=== PATIENT | male | born 1980 | race Caucasian/White ===

== ENCOUNTER → 2018-01-27 | Outpatient (REF) | payer MEDICAID ==
[2018-01-27 12:26] LABS: ALBUMIN 3.9 GM/DL (3.2-5.2); ALKALINE PHOSPHATASE 76 U/L (45-117); ALT/SGPT 66 U/L (12-78); ANION GAP 7 MEQ/L (8-16); AST/SGOT 54 U/L (7-37); BILIRUBIN,TOTAL 0.4 MG/DL (0.2-1.0); BLOOD UREA NITROGEN 16 MG/DL (7-18); CARBON DIOXIDE LEVEL 29 MEQ/L (21-32); CHLORIDE LEVEL 102 MEQ/L (98-107); CHOLESTEROL LEVEL 146 MG/DL (<200); CHOLESTEROL RISK RATIO 5.615 (<5); CREATININE FOR GFR 1.18 MG/DL (0.70-1.30); GLOMERULAR FILTRATION RATE > 60.0 (>60); GLUCOSE, FASTING 73 MG/DL (70-100); HDL CHOLESTEROL 26 MG/DL (>40); LDL CHOLESTEROL 104 MG/DL (<100); NON-HDL-C 120 MG/DL; POTASSIUM SERUM 5.3 MEQ/L (3.5-5.1); SODIUM LEVEL 138 MEQ/L (136-145); TOTAL PROTEIN 7.8 GM/DL (6.4-8.2); TRIGLYCERIDES LEVEL 79 MG/DL (<150)
[2018-01-27 12:50] LABS: HEPATITIS B CORE ANTIBODY IGM NEGATIVE (NEGATIVE); HEPATITIS C VIRUS ABY INDEX < 0.0 INDEX (<0.8)
[2018-01-27 12:52] LABS: HIV 1&2 SCREEN CENTAUR NEGATIVE (NEGATIVE)
[2018-01-27 12:53] LABS: HEPATITIS A ANTIBODY IGM NEGATIVE (NEGATIVE)
[2018-01-27 13:25] LABS: HEPATITIS B SURFACE ANTIGEN NEGATIVE (NEGATIVE)
[2018-01-27 14:11] LABS: CHLAMYDIA DNA AMPLIFICATION NEGATIVE (NEGATIVE); GC DNA AMPLIFICATION NEGATIVE (NEGATIVE)
== END ==
LOC: M SFHCCLAY 08:35
DX: Z00.00 Encounter for general adult medical examination without abnormal findings (principal); Z72.51 High risk heterosexual behavior; Z11.59 Encounter for screening for other viral diseases; Z87.898 Personal history of other specified conditions; Z11.4 Encounter for screening for human immunodeficiency virus [HIV]; Z13.220 Encounter for screening for lipoid disorders

== ENCOUNTER → 2018-01-28 | Outpatient (REF) | payer MEDICAID | LOC: M SFHCCLAY 07:51 | DX: E87.5 Hyperkalemia (principal); R74.0 Nonspecific elevation of levels of transaminase and lactic acid dehydrogenase [LDH]; Z53.8 Procedure and treatment not carried out for other reasons ==

== ENCOUNTER → 2018-02-02 | Outpatient (REF) | payer MEDICAID ==
[2018-02-02 18:53] LABS: ALBUMIN 3.6 GM/DL (3.2-5.2); ALKALINE PHOSPHATASE 79 U/L (45-117); ALT/SGPT 63 U/L (12-78); ANION GAP 4 MEQ/L (8-16); AST/SGOT 69 U/L (7-37); BILIRUBIN,TOTAL 0.3 MG/DL (0.2-1.0); BLOOD UREA NITROGEN 14 MG/DL (7-18); CALCIUM LEVEL 9.2 MG/DL (8.5-10.1); CARBON DIOXIDE LEVEL 31 MEQ/L (21-32); CHLORIDE LEVEL 102 MEQ/L (98-107); CREATININE FOR GFR 1.38 MG/DL (0.70-1.30); GLOMERULAR FILTRATION RATE > 60.0 (>60); GLUCOSE, FASTING 68 MG/DL (70-100); POTASSIUM SERUM 5.4 MEQ/L (3.5-5.1); SODIUM LEVEL 137 MEQ/L (136-145); TOTAL PROTEIN 7.2 GM/DL (6.4-8.2)
== END ==
LOC: M SFHCCLAY 06:59
DX: E87.5 Hyperkalemia (principal); R74.0 Nonspecific elevation of levels of transaminase and lactic acid dehydrogenase [LDH]
CPT/HCPCS: 80053

== ENCOUNTER → 2018-02-23 | Outpatient (REF) | payer MEDICAID | LOC: M SFHCCLAY 06:56 | DX: E87.5 Hyperkalemia (principal); R74.0 Nonspecific elevation of levels of transaminase and lactic acid dehydrogenase [LDH] ==

== ENCOUNTER → 2018-03-18 | Outpatient (CLI) | payer MEDICAID | LOC: M OUTALCOH 12:57 | DX: Z13.9 Encounter for screening, unspecified (principal); Z03.89 Encounter for observation for other suspected diseases and conditions ruled out ==

== ENCOUNTER → 2018-03-19 | Outpatient (CLI) | payer MEDICAID ==
[2018-03-19 14:26] LABS: ALBUMIN 3.6 GM/DL (3.2-5.2); ALKALINE PHOSPHATASE 84 U/L (45-117); ALT/SGPT 64 U/L (12-78); ANION GAP 7 MEQ/L (8-16); AST/SGOT 74 U/L (7-37); BILIRUBIN,TOTAL 0.3 MG/DL (0.2-1.0); BLOOD UREA NITROGEN 19 MG/DL (7-18); CALCIUM LEVEL 9.6 MG/DL (8.5-10.1); CARBON DIOXIDE LEVEL 29 MEQ/L (21-32); CHLORIDE LEVEL 101 MEQ/L (98-107); CORTISOL BASELINE 13.2 UG/DL (4.3-22.4); CREATININE FOR GFR 1.16 MG/DL (0.70-1.30); GLOMERULAR FILTRATION RATE > 60.0 (>60); GLUCOSE, FASTING 30 MG/DL (70-100); IRON (FE) 72 UG/DL (65-175); PERCENT SATURATION 18.6 % (19.7-50.0); SODIUM LEVEL 137 MEQ/L (136-145); TOTAL IRON BINDING CAPACITY 387 UG/DL (250-450); TOTAL PROTEIN 7.2 GM/DL (6.4-8.2)
[2018-03-25 14:24] LABS: RENIN LEVEL 0.476 ng/mL/hr (0.167-5.380)
== END ==
LOC: M LAB 12:57
DX: E87.5 Hyperkalemia (principal); R74.0 Nonspecific elevation of levels of transaminase and lactic acid dehydrogenase [LDH]
CPT/HCPCS: 83550

== ENCOUNTER → 2018-05-13 | Outpatient (CLI) | payer OTHER ==
[2018-05-13 13:49] LABS: INR 0.92; PROTHROMBIN TIME 12.4 SECONDS (12.1-14.4)
[2018-05-13 14:10] LABS: ALBUMIN 3.7 GM/DL (3.2-5.2); ALT/SGPT 68 U/L (12-78); BILIRUBIN,DIRECT 0.1 MG/DL (0.0-0.2); BILIRUBIN,TOTAL 0.3 MG/DL (0.2-1.0); IRON (FE) 38 UG/DL (65-175); PERCENT SATURATION 9.4 % (19.7-50.0); TOTAL IRON BINDING CAPACITY 406 UG/DL (250-450); TOTAL PROTEIN 7.5 GM/DL (6.4-8.2)
[2018-05-14 12:22] LABS: HEPATITIS B SURFACE ANTIGEN NEGATIVE (NEGATIVE)
[2018-05-14 12:49] LABS: HEPATITIS C VIRUS ABY INDEX 0.1 INDEX (<0.8)
[2018-05-14 12:50] LABS: HEPATITIS B CORE ANTIBODY IGM NEGATIVE (NEGATIVE)
[2018-05-14 12:52] LABS: HEPATITIS A ANTIBODY IGM NEGATIVE (NEGATIVE)
[2018-05-16 00:07] LABS: LIVER-KIDNEY MICROSOMAL ABY <20.1 Units (0.0-20.0)
[2018-05-19 00:08] LABS: ANCA-ATYPICAL <1:20 titer (Neg:<1:20); ANTI-MITOCHONDRIAL ANTIBODY <20.0 Units (0.0-20.0); ANTINUCLEAR ANTIBODIES DIRECT Negative (Negative); CERULOPLASMIN 30.4 mg/dL (16.0-31.0); CYTOPLASMIC NEUTROP AB ANCA-C <1:20 titer (Neg:<1:20); PERINUCLEAR AB ANCA-P <1:20 titer (Neg:<1:20)
== END ==
LOC: M LAB 13:14
PROVIDERS: ATTEND Internal Medicine Gastroenterology
DX: R74.8 Abnormal levels of other serum enzymes (principal)

== ENCOUNTER → 2018-05-19 | Outpatient (CLI) | payer OTHER ==
--- NOTE | 2018-05-19 19:54 | REP ---
Clinical: Abnormal liver function tests . Technique: Aponte scale ultrasound using curved array transducer. Findings: The liver and pancreas are normal in contour, size, and echogenicity without focal hepatic or pancreatic lesions identified. The gallbladder is normal without gallstones, wall thickening or pericholecystic fluid. No biliary ductal dilatation is appreciated, and the common bile duct measures 2.8 mm diameter. The right kidney is normal in reniform shape without hydronephrosis and measures 13.0 x 5.3 x 4.6 cm. No ascites. Visualized portions of the abdominal aorta normal. Impression: Normal right upper quadrant and liver abdominal ultrasound. Electronically Signed by Dominguez Lee MD 05/19/2018 07:46 P
== END ==
LOC: M RAD 08:24
PROVIDERS: ATTEND Internal Medicine Gastroenterology
DX: R74.8 Abnormal levels of other serum enzymes (principal)

== ENCOUNTER → 2018-06-22 | Outpatient (REF) | payer MEDICAID, OTHER ==
[2018-06-25 14:26] LABS: HEPATITIS C QUANTITATION HCV Not Detected IU/mL (.)
== END ==
LOC: M SFHCCLAY 12:27
PROVIDERS: ATTEND Family Medicine
DX: E87.5 Hyperkalemia (principal)

== ENCOUNTER → 2018-07-07 | Outpatient (CLI) | payer MEDICAID, OTHER | LOC: M LAB 15:03 | PROVIDERS: ATTEND Internal Medicine Gastroenterology | DX: D50.9 Iron deficiency anemia, unspecified (principal) ==

== ENCOUNTER → 2019-01-14 | Outpatient (CLI) | payer MEDICAID | LOC: M OUTALCOH 07:45 | PROVIDERS: ATTEND Psychiatry & Neurology Psychiatry | DX: Z03.89 Encounter for observation for other suspected diseases and conditions ruled out (principal) ==

== ENCOUNTER 2019-02-07 09:30 | Outpatient (RCR) | payer MEDICAID | END 2019-02-10 | LOC: M OUTALCOH 09:30 | PROVIDERS: ATTEND Psychiatry & Neurology Psychiatry | DX: F14.10 Cocaine abuse, uncomplicated (principal); F10.10 Alcohol abuse, uncomplicated ==

== ENCOUNTER → 2019-02-10 | Outpatient (RCR) | payer MEDICAID | LOC: M OUTALCOH 11:08 | PROVIDERS: ATTEND Psychiatry & Neurology Psychiatry | DX: F14.10 Cocaine abuse, uncomplicated (principal); F10.10 Alcohol abuse, uncomplicated ==

== ENCOUNTER 2019-03-07 16:00 | Outpatient (RCR) | payer OTHER | END 2019-03-12 | LOC: M OUTALCOH 16:00 | PROVIDERS: ATTEND Psychiatry & Neurology Psychiatry | DX: F14.10 Cocaine abuse, uncomplicated (principal); F10.10 Alcohol abuse, uncomplicated ==

== ENCOUNTER 2019-03-15 18:53 | Emergency (ER) | payer OTHER ==
[~2019-03-15] VITALS: Ht 180.3 cm; Wt 90.9 kg
[2019-03-15 18:53] VITALS: BP 135/78
[2019-03-15] MEDS ORDERED: HYDR-643 (18:58)
[2019-03-15] MEDS ORDERED: BUPR300T34 (18:58)
[2019-03-15] MEDS ORDERED: PANT40TA3 (18:58)
== END 2019-03-15 21:33 | disposition left against medical advice (07) ==
LOC: M ED 18:53
DX: Z53.21 Procedure and treatment not carried out due to patient leaving prior to being seen by health care provider (principal)

== ENCOUNTER → 2019-04-01 | Outpatient (CLI) | payer MEDICAID ==
[~2019-04-01] MED LIST: BUPR300T34; HYDR-643; PANT40TA3
== END ==
LOC: M PLALAB 12:20
PROVIDERS: ATTEND Psychiatry & Neurology Psychiatry
DX: Z03.89 Encounter for observation for other suspected diseases and conditions ruled out (principal)

== ENCOUNTER 2019-04-11 08:45 | Outpatient (RCR) | payer OTHER | END 2019-04-12 | LOC: M OUTALCOH 08:45 | PROVIDERS: ATTEND Psychiatry & Neurology Psychiatry | DX: F14.10 Cocaine abuse, uncomplicated (principal); F10.10 Alcohol abuse, uncomplicated ==

== ENCOUNTER → 2019-04-20 | Outpatient (CLI) | payer OTHER ==
[2019-04-20 18:20] LABS: AMPHETAMINES URINE REFLEX NEGATIVE (NEGATIVE); BARBITURATES URINE REFLEX NEGATIVE (NEGATIVE); BENZODIAZEPINES URINE REFLEX NEGATIVE (NEGATIVE); CANNABINOIDS URINE REFLEX NEGATIVE (NEGATIVE); COCAINE METABOLITE URINE REFLE NEGATIVE (NEGATIVE); METHADONE URINE REFLEX NEGATIVE (NEGATIVE); OPIATES URINE REFLEX NEGATIVE (NEGATIVE); PHENCYCLIDINE URINE REFLEX NEGATIVE (NEGATIVE)
== END ==
LOC: M PLALAB 12:22
PROVIDERS: ATTEND Psychiatry & Neurology Psychiatry
DX: F14.10 Cocaine abuse, uncomplicated (principal); F10.10 Alcohol abuse, uncomplicated

== ENCOUNTER 2019-05-02 08:45 | Outpatient (RCR) | payer OTHER ==
[~2019-05-02 08:45] MED LIST changes: -BUPR300T34; +BUPR300T92
== END 2019-05-13 ==
LOC: M OUTALCOH 08:45
PROVIDERS: ATTEND Psychiatry & Neurology Psychiatry
DX: F14.10 Cocaine abuse, uncomplicated (principal); F10.10 Alcohol abuse, uncomplicated

== ENCOUNTER → 2019-05-12 | Outpatient (REF) | payer MEDICAID, OTHER ==
[2019-05-12 16:07] LABS: BASO % 0.5 % (0.0-1.0); EOS # 0.2 10^3/uL (0.0-0.5); EOS % 2.5 % (0.0-3.0); HEMATOCRIT 47.3 % (42.0-52.0); HEMOGLOBIN 14.8 g/dl (13.5-17.5); LYMPH # 1.7 10^3/uL (1.5-5.0); LYMPH % 21.3 % (24.0-44.0); MEAN CORPUSCULAR HEMOGLOBIN 29.3 pg (27.0-33.0); MEAN CORPUSCULAR HGB CONC 31.3 g/dl (32.0-36.5); MEAN CORPUSCULAR VOLUME 93.7 fl (80.0-96.0); MONO # 0.6 10^3/uL (0.0-0.8); NEUTROPHILS # 5.5 10^3/uL (1.5-8.5); NEUTROPHILS % 68.3 % (36.0-66.0); PLATELET COUNT, AUTOMATED 300 10^3/uL (150-450); RED BLOOD COUNT 5.05 10^6/uL (4.30-6.10); WHITE BLOOD COUNT 8.1 10^3/uL (4.0-10.0)
[2019-05-12 16:58] LABS: ALBUMIN 4.1 GM/DL (3.2-5.2); ALT/SGPT 126 U/L (12-78); BILIRUBIN,TOTAL 0.8 MG/DL (0.2-1.0); BLOOD UREA NITROGEN 16 MG/DL (7-18); CALCIUM LEVEL 9.5 MG/DL (8.5-10.1); CARBON DIOXIDE LEVEL 31 MEQ/L (21-32); CHLORIDE LEVEL 104 MEQ/L (98-107); CREATININE FOR GFR 1.08 MG/DL (0.70-1.30); GLOMERULAR FILTRATION RATE > 60.0 (>60); GLUCOSE, FASTING 81 MG/DL (70-100); SODIUM LEVEL 139 MEQ/L (136-145); TOTAL PROTEIN 7.7 GM/DL (6.4-8.2)
[2019-05-13 09:55] LABS: HEPATITIS B SURFACE ANTIBODY POSITIVE (POSITIVE)
[2019-05-13 10:00] LABS: HEPATITIS B SURFACE ANTIGEN NEGATIVE (NEGATIVE)
[2019-05-13 10:27] LABS: HEPATITIS C VIRUS ABY INDEX 0.1 INDEX (<0.8)
[2019-05-13 10:28] LABS: HIV 1&2 SCREEN CENTAUR NEGATIVE (NEGATIVE)
[2019-05-14 08:31] LABS: HEPATITIS A IgG TOTAL Positive (Negative); HEPATITIS B CORE ANTIBODY IGG Negative (Negative)
== END ==
LOC: M SFHCPLAZ 14:24
PROVIDERS: ATTEND Internal Medicine Infectious Disease
DX: B15.9 Hepatitis A without hepatic coma (principal); F19.10 Other psychoactive substance abuse, uncomplicated

== ENCOUNTER 2021-03-23 14:10 | Inpatient (IN) | payer MEDICAID, OTHER ==
[~2021-03-23 14:10] MED LIST changes: +PANT40TA29; -PANT40TA3
[2021-03-23] MEDS ORDERED: NALOXONE 2MG/2ML SYRINGE (J2310 PER 1MG) ONE ×2 (14:40→14:41)
[2021-03-23] MEDS ORDERED: NS 1,000 ML IV ONE ×2 (14:50→15:45)
[2021-03-23] MEDS ORDERED: DEXTROSE 50% 50 ML SYRINGE IV STA (14:52)
[2021-03-23] MEDS ORDERED: DEXTROSE 50% 50 ML SYRINGE As Ordered ONE (14:53)
[2021-03-23 14:55] LABS: BASO # 0.1 10^3/uL (0.0-0.2); BASO % 0.5 % (0.0-1.0); EOS # 0.2 10^3/uL (0.0-0.5); EOS % 1.2 % (0.0-3.0); HEMATOCRIT 44.8 % (42.0-52.0); HEMOGLOBIN 14.6 g/dl (13.5-17.5); LYMPH # 3.7 10^3/uL (1.5-5.0); LYMPH % 30.3 % (24.0-44.0); MEAN CORPUSCULAR HEMOGLOBIN 30.1 pg (27.0-33.0); MEAN CORPUSCULAR HGB CONC 32.6 g/dl (32.0-36.5); MEAN CORPUSCULAR VOLUME 92.4 fl (80.0-96.0); MONO # 0.9 10^3/uL (0.0-0.8); MONO % 7.5 % (2.0-8.0); NEUTROPHILS # 7.3 10^3/uL (1.5-8.5); NEUTROPHILS % 60.1 % (36.0-66.0); PLATELET COUNT, AUTOMATED 324 10^3/uL (150-450); RED BLOOD COUNT 4.85 10^6/uL (4.30-6.10); WHITE BLOOD COUNT 12.1 10^3/uL (4.0-10.0)
[2021-03-23 15:40] LABS: ACETAMINOPHEN LEVEL < 2.0 UG/ML (10.0-30.0); ALBUMIN 3.9 GM/DL (3.2-5.2); ALT/SGPT 45 U/L (12-78); BILIRUBIN,DIRECT < 0.1 MG/DL (0.0-0.2); BILIRUBIN,TOTAL 0.3 MG/DL (0.2-1.0); BLOOD UREA NITROGEN 20 MG/DL (7-18); CALCIUM LEVEL 9.4 MG/DL (8.5-10.1); CARBON DIOXIDE LEVEL 13 MEQ/L (21-32); CHLORIDE LEVEL 103 MEQ/L (98-107); CREATININE FOR GFR 1.27 MG/DL (0.70-1.30); ETHYL ALCOHOL (ETHANOL) < 0.003 % (0.000-0.010); GLOMERULAR FILTRATION RATE > 60.0 (>60); GLUCOSE, FASTING 60 MG/DL (70-100); SALICYLATE LEVEL < 1.7 MG/DL (5.0-30.0); SODIUM LEVEL 136 MEQ/L (136-145); TOTAL PROTEIN 7.9 GM/DL (6.4-8.2)
[2021-03-23 15:52] LABS: RSV AMPLIFICATION NEGATIVE (NEGATIVE)
[2021-03-23 16:15] LABS: OSMOLALITY SERUM 286 MOSM/KG (275-295)
[2021-03-23 17:21] LABS: AMPHETAMINES LEVEL URINE POSITIVE (NEGATIVE); BARBITURATES URINE NEGATIVE (NEGATIVE); BENZODIAZEPINES URINE NEGATIVE (NEGATIVE); CANNABINOIDS URINE NEGATIVE (NEGATIVE); COCAINE METABOLITE URINE NEGATIVE (NEGATIVE); METHADONE URINE NEGATIVE (NEGATIVE); OPIATES URINE POSITIVE (NEGATIVE); PHENCYCLIDINE URINE NEGATIVE (NEGATIVE)
[2021-03-23] MEDS ORDERED: HOME MED LIST COMPLETE! XX SCH (18:20)
[2021-03-23] MEDS ORDERED: LORazepam 2 MG TAB PO PRN (18:40)
[2021-03-23] MEDS ORDERED: SOD POLYSTYRENE SULFONATE SUSP 15 GM/60 ML UD PO ONE (18:40)
[2021-03-23] MEDS ORDERED: CALCIUM GLUCONATE 1,000 MG in D5W MINI-BAG PLUS 100 ML IV ONE (18:40)
[2021-03-23] MEDS ORDERED: MAALOX 30 ML SUSP *UDC PO PRN (18:40)
[2021-03-23] MEDS ORDERED: MOM 30ML SUSPENSION UDC PO PRN (18:40)
[2021-03-23] MEDS ORDERED: NALOXONE INJ 0.4MG/1ML VIAL (J2310 PER 1MG) IV PRN (18:45)
[2021-03-23 19:16] LABS: VENOUS BASE EXCESS -3.1 (-2.0-2.0); VENOUS HCO3 21.5 MEQ/L (23.0-27.0); VENOUS O2 SATURATION 98.4 % (60.0-80.0); VENOUS PARTIAL PRESSURE CO2 37.5 mmHg (38.0-50.0); VENOUS PARTIAL PRESSURE O2 131.6 mmHg (30.0-50.0); VENOUS PH 7.377 UNITS (7.330-7.430); VENOUS STANDARD HCO3 21.9 MEQ/L; VENOUS TOTAL CO2 22.7 MEQ/L (24.0-28.0)
[2021-03-23 19:34] LABS: INR 0.92; PROTHROMBIN TIME 12.8 SECONDS (12.7-14.5)
[2021-03-23 19:35] LABS: PARTIAL THROMBOPLASTIN TIME 31.6 SECONDS (25.9-37.0)
[2021-03-23] MEDS ORDERED: GLUCOSE 4GM CHEW TABLET PO PRN (20:30)
[2021-03-23] MEDS ORDERED: GLUCAGON INJ 1MG VIAL SC PRN (20:30)
[2021-03-23] MEDS ORDERED: DEXTROSE 50% 50 ML SYRINGE IV PRN (20:30)
[2021-03-23 21:00] VITALS: BP 133/78
[2021-03-23] MEDS: DOCUSATE SODIUM 100MG CAPSULE PO SCH (21:43)
[2021-03-23] MEDS: D5W/0.45% SODIUM CHLORIDE 1,000 ML IV SCH (21:43)
[2021-03-23] MEDS: THIAMINE 100 MG TAB PO SCH (21:43)
[2021-03-23 22:00] VITALS: BP 133/78
[2021-03-24] VITALS (9 sets, daily range): BP systolic 125–148; BP diastolic 78–91
[2021-03-24] MEDS: ACETAMINOPHEN TAB 650MG DOSE (2X325MG) PO PRN ×2 (03:56→20:32)
[2021-03-24] MEDS: D5W/0.45% SODIUM CHLORIDE 1,000 ML IV SCH ×2 (04:08→09:40)
[2021-03-24 08:04] LABS: HEMOGLOBIN 12.7 g/dl (13.5-17.5); MEAN CORPUSCULAR HEMOGLOBIN 29.6 pg (27.0-33.0); MEAN CORPUSCULAR HGB CONC 31.8 g/dl (32.0-36.5); MEAN CORPUSCULAR VOLUME 93.2 fl (80.0-96.0); PLATELET COUNT, AUTOMATED 229 10^3/uL (150-450); RED BLOOD COUNT 4.29 10^6/uL (4.30-6.10)
[2021-03-24 08:52] LABS: BLOOD UREA NITROGEN 10 MG/DL (7-18); CALCIUM LEVEL 7.8 MG/DL (8.5-10.1); CARBON DIOXIDE LEVEL 25 MEQ/L (21-32); CHLORIDE LEVEL 107 MEQ/L (98-107); CREATININE FOR GFR 0.77 MG/DL (0.70-1.30); GLOMERULAR FILTRATION RATE > 60.0 (>60); GLUCOSE, FASTING 90 MG/DL (70-100); MAGNESIUM LEVEL 2.2 MG/DL (1.8-2.4); POTASSIUM SERUM 3.7 MEQ/L (3.5-5.1); SODIUM LEVEL 140 MEQ/L (136-145)
[2021-03-24] MEDS ORDERED: FOLIC ACID 1 MG TAB PO SCH (09:00)
[2021-03-24] MEDS ORDERED: MULTIVITAMINS/MINERALS THERAP 1 TAB PO SCH (09:00)
[2021-03-24] MEDS: DOCUSATE SODIUM 100MG CAPSULE PO SCH ×2 (09:40→20:30)
[2021-03-24] MEDS: THIAMINE 100 MG TAB PO SCH ×2 (09:40→20:31)
[2021-03-25] VITALS (8 sets, daily range): BP systolic 133–177; BP diastolic 55–98
[2021-03-25 08:43] LABS: BASO % 0.5 % (0.0-1.0); EOS # 0.2 10^3/uL (0.0-0.5); EOS % 2.7 % (0.0-3.0); HEMATOCRIT 42.7 % (42.0-52.0); HEMOGLOBIN 14.1 g/dl (13.5-17.5); LYMPH # 2.3 10^3/uL (1.5-5.0); LYMPH % 27.3 % (24.0-44.0); MEAN CORPUSCULAR VOLUME 90.9 fl (80.0-96.0); MONO # 0.6 10^3/uL (0.0-0.8); MONO % 7.3 % (2.0-8.0); NEUTROPHILS # 5.2 10^3/uL (1.5-8.5); NEUTROPHILS % 61.8 % (36.0-66.0); PLATELET COUNT, AUTOMATED 273 10^3/uL (150-450); WHITE BLOOD COUNT 8.4 10^3/uL (4.0-10.0)
[2021-03-25] MEDS: THIAMINE 100 MG TAB PO SCH ×2 (09:00→20:04)
[2021-03-25] MEDS: FOLIC ACID 1 MG TAB PO SCH (09:00)
[2021-03-25] MEDS: MULTIVITAMINS/MINERALS THERAP 1 TAB PO SCH (09:00)
[2021-03-25 09:41] LABS: ALBUMIN 3.6 GM/DL (3.2-5.2); ALT/SGPT 42 U/L (12-78); BILIRUBIN,TOTAL 0.1 MG/DL (0.2-1.0); BLOOD UREA NITROGEN 12 MG/DL (7-18); CALCIUM LEVEL 9.1 MG/DL (8.5-10.1); CARBON DIOXIDE LEVEL 26 MEQ/L (21-32); CHLORIDE LEVEL 107 MEQ/L (98-107); CREATININE FOR GFR 0.63 MG/DL (0.70-1.30); GLOMERULAR FILTRATION RATE > 60.0 (>60); GLUCOSE, FASTING 83 MG/DL (70-100); MAGNESIUM LEVEL 2.3 MG/DL (1.8-2.4); SODIUM LEVEL 140 MEQ/L (136-145); TOTAL PROTEIN 7.2 GM/DL (6.4-8.2)
[2021-03-25] MEDS: LORazepam 2 MG TAB PO PRN ×3 (11:14→17:07)
[2021-03-25] MEDS: DOCUSATE SODIUM 100MG CAPSULE PO SCH ×2 (11:14→20:03)
[2021-03-25] MEDS: rOPINIRole 2MG TAB PO SCH ×2 (15:57→20:04)
[2021-03-25] MEDS ORDERED: LORazepam 2 MG/ML VIAL IM PRN (17:20)
[2021-03-25] MEDS ORDERED: LORazepam 2 MG/ML VIAL As Ordered ONE (17:23)
[2021-03-25] MEDS ORDERED: LORazepam 2 MG/ML VIAL IV PRN (18:20)
[2021-03-25] MEDS ORDERED: diazePAM 10MG/2ML SYRINGE (J3360 PER 5MG) IV ONE (19:55)
[2021-03-25] MEDS ORDERED: LORazepam 2 MG TAB XX PRN (20:05)
[2021-03-25] MEDS ORDERED: HALOPERIDOL 5MG/ML VIAL (J1630 PER 1) IM STA (21:03)
[2021-03-25] MEDS: diazePAM 10MG/2ML SYRINGE (J3360 PER 5MG) IV PRN (21:12)
[2021-03-25] MEDS: LORazepam 2 MG/ML VIAL IV PRN (22:35)
[2021-03-26] VITALS (7 sets, daily range): BP systolic 127–179; BP diastolic 65–104
[2021-03-26] MEDS: diazePAM 10MG/2ML SYRINGE (J3360 PER 5MG) IV PRN ×4 (01:22→21:53)
[2021-03-26] MEDS ORDERED: HALOPERIDOL 5MG/ML VIAL (J1630 PER 1) IM ONE (02:25)
[2021-03-26] MEDS: LORazepam 2 MG/ML VIAL IV PRN ×8 (05:43→23:39)
[2021-03-26] MEDS: DOCUSATE SODIUM 100MG CAPSULE PO SCH ×2 (09:27→21:00)
[2021-03-26] MEDS: THIAMINE 100 MG TAB PO SCH ×2 (09:27→21:00)
[2021-03-26] MEDS: MULTIVITAMINS/MINERALS THERAP 1 TAB PO SCH (09:27)
[2021-03-26] MEDS: rOPINIRole 2MG TAB PO SCH ×3 (09:28→21:00)
[2021-03-26] MEDS: FOLIC ACID 1 MG TAB PO SCH (09:28)
[2021-03-26] MEDS ORDERED: OLANZapine INTRAMUSCULAR 10MG VIAL IM ONE ×2 (14:40→14:55)
[2021-03-26] MEDS: OXAZEPAM 15 MG CAP PO SCH (17:15)
[2021-03-26] MEDS ORDERED: HALOPERIDOL 5MG/ML VIAL (J1630 PER 1) IM STA ×2 (19:10→20:20)
[2021-03-26] MEDS ORDERED: diphenhydrAMINE 50MG/ML VIAL (J1200) As Ordered ONE (20:19)
[2021-03-26] MEDS ORDERED: LORazepam 2 MG/ML VIAL IV STA (20:20)
[2021-03-26] MEDS ORDERED: diphenhydrAMINE 50MG/ML VIAL (J1200) IV STA (20:20)
[2021-03-27] VITALS (80 sets, daily range): BP systolic 68–146; BP diastolic 42–88
[2021-03-27] MEDS: diazePAM 10MG/2ML SYRINGE (J3360 PER 5MG) IV PRN ×2 (00:13→03:50)
[2021-03-27] MEDS: dexmedeTOMidine 200 MCG in IV 1 EA IV SCH ×9 (00:56→23:44)
[2021-03-27] MEDS: LORazepam 2 MG/ML VIAL IV PRN (03:23)
[2021-03-27 05:54] LABS: HEMATOCRIT 48.8 % (42.0-52.0); MEAN CORPUSCULAR HEMOGLOBIN 29.8 pg (27.0-33.0); MEAN CORPUSCULAR HGB CONC 33.8 g/dl (32.0-36.5); MEAN CORPUSCULAR VOLUME 88.2 fl (80.0-96.0); PLATELET COUNT, AUTOMATED 334 10^3/uL (150-450); RED BLOOD COUNT 5.53 10^6/uL (4.30-6.10)
[2021-03-27] MEDS: OXAZEPAM 15 MG CAP PO SCH ×4 (06:00→17:27)
[2021-03-27 06:04] LABS: HEMOGLOBIN 16.5 g/dl (13.5-17.5)
[2021-03-27 06:15] LABS: BLOOD UREA NITROGEN 15 MG/DL (7-18); CALCIUM LEVEL 9.9 MG/DL (8.5-10.1); CARBON DIOXIDE LEVEL 25 MEQ/L (21-32); CHLORIDE LEVEL 110 MEQ/L (98-107); GLOMERULAR FILTRATION RATE > 60.0 (>60); GLUCOSE, FASTING 114 MG/DL (70-100); POTASSIUM SERUM 4.6 MEQ/L (3.5-5.1); SODIUM LEVEL 141 MEQ/L (136-145)
[2021-03-27] MEDS ORDERED: LACTATED RINGER'S 1000 ML IV ONE (07:05)
[2021-03-27] MEDS: THIAMINE 100 MG TAB PO SCH (08:59)
[2021-03-27] MEDS: rOPINIRole 2MG TAB PO SCH ×2 (08:59→15:00)
[2021-03-27] MEDS: FOLIC ACID 1 MG TAB PO SCH (08:59)
[2021-03-27] MEDS: MULTIVITAMINS/MINERALS THERAP 1 TAB PO SCH (08:59)
[2021-03-27] MEDS: DOCUSATE SODIUM 100MG CAPSULE PO SCH ×2 (08:59→21:00)
[2021-03-27] MEDS ORDERED: LR 500 ML IV ONE (09:55)
[2021-03-27] MEDS ORDERED: LR 1,000 ML IV ONE (10:20)
[2021-03-27] MEDS: LR 1,000 ML IV SCH ×2 (12:15→21:16)
[2021-03-27] MEDS ORDERED: LIDOCAINE 5% (LIDODERM) PATCH TD ONE (18:00)
[2021-03-27] MEDS: **NOTE PATIENT COMMENT** MISC XX SCH (21:00)
[2021-03-28] VITALS (40 sets, daily range): BP systolic 96–130; BP diastolic 53–75
[2021-03-28] MEDS: ACETAMINOPHEN TAB 650MG DOSE (2X325MG) PO PRN (00:05)
[2021-03-28] MEDS ORDERED: diazePAM 10MG/2ML SYRINGE (J3360 PER 5MG) As Ordered ONE (01:38)
[2021-03-28] MEDS: diazePAM 10MG/2ML SYRINGE (J3360 PER 5MG) IV PRN ×4 (03:02→21:35)
[2021-03-28] MEDS: dexmedeTOMidine 200 MCG in IV 1 EA IV SCH ×4 (03:02→19:15)
[2021-03-28 05:14] LABS: MEAN CORPUSCULAR HEMOGLOBIN 29.9 pg (27.0-33.0); MEAN CORPUSCULAR HGB CONC 33.3 g/dl (32.0-36.5); MEAN CORPUSCULAR VOLUME 89.6 fl (80.0-96.0); PLATELET COUNT, AUTOMATED 282 10^3/uL (150-450); RED BLOOD COUNT 4.69 10^6/uL (4.30-6.10); WHITE BLOOD COUNT 10.7 10^3/uL (4.0-10.0)
[2021-03-28 05:42] LABS: BLOOD UREA NITROGEN 18 MG/DL (7-18); CARBON DIOXIDE LEVEL 26 MEQ/L (21-32); CHLORIDE LEVEL 109 MEQ/L (98-107); CREATININE FOR GFR 0.77 MG/DL (0.70-1.30); GLOMERULAR FILTRATION RATE > 60.0 (>60); GLUCOSE, FASTING 97 MG/DL (70-100); POTASSIUM SERUM 4.2 MEQ/L (3.5-5.1); SODIUM LEVEL 143 MEQ/L (136-145)
[2021-03-28] MEDS: DOCUSATE SODIUM 100MG CAPSULE PO SCH ×2 (08:15→21:00)
[2021-03-28] MEDS: ENOXAPARIN 40MG/0.4ML SYRINGE (J1650 PER 10MG) SC SCH (08:15)
[2021-03-28] MEDS: LR 1,000 ML IV SCH ×2 (08:16→14:43)
[2021-03-28] MEDS: OXAZEPAM 15 MG CAP PO SCH ×3 (11:43→23:53)
[2021-03-28] MEDS: FIBER-CON 625 MG TAB PO SCH ×2 (15:37→21:16)
[2021-03-28] MEDS: THIAMINE 100 MG TAB PO SCH (21:16)
[2021-03-28] MEDS: **NOTE PATIENT COMMENT** MISC XX SCH (21:17)
[2021-03-29] VITALS: BP 113/78
[2021-03-29] MEDS: diazePAM 10MG/2ML SYRINGE (J3360 PER 5MG) IV PRN (01:36)
[2021-03-29 02:00] VITALS: BP 122/73
[2021-03-29] MEDS: dexmedeTOMidine 200 MCG in IV 1 EA IV SCH ×3 (02:33→05:50)
[2021-03-29 03:00] VITALS: BP 113/75
[2021-03-29 04:00] VITALS: BP 114/70
[2021-03-29] MEDS: OXAZEPAM 15 MG CAP PO SCH (06:00)
[2021-03-29 08:00] VITALS: BP 110/69
[2021-03-29 08:15] LABS: HEMATOCRIT 43.4 % (42.0-52.0); HEMOGLOBIN 14.3 g/dl (13.5-17.5); MEAN CORPUSCULAR HEMOGLOBIN 29.4 pg (27.0-33.0); MEAN CORPUSCULAR HGB CONC 32.9 g/dl (32.0-36.5); MEAN CORPUSCULAR VOLUME 89.3 fl (80.0-96.0); PLATELET COUNT, AUTOMATED 303 10^3/uL (150-450); RED BLOOD COUNT 4.86 10^6/uL (4.30-6.10); WHITE BLOOD COUNT 9.3 10^3/uL (4.0-10.0)
[2021-03-29] MEDS: ENOXAPARIN 40MG/0.4ML SYRINGE (J1650 PER 10MG) SC SCH (08:23)
[2021-03-29] MEDS: FIBER-CON 625 MG TAB PO SCH (08:23)
[2021-03-29 08:32] LABS: BLOOD UREA NITROGEN 15 MG/DL (7-18); CALCIUM LEVEL 8.9 MG/DL (8.5-10.1); CARBON DIOXIDE LEVEL 27 MEQ/L (21-32); CHLORIDE LEVEL 110 MEQ/L (98-107); CREATININE FOR GFR 0.76 MG/DL (0.70-1.30); GLOMERULAR FILTRATION RATE > 60.0 (>60); GLUCOSE, FASTING 99 MG/DL (70-100); POTASSIUM SERUM 4.3 MEQ/L (3.5-5.1); SODIUM LEVEL 143 MEQ/L (136-145)
[2021-03-29] MEDS ORDERED: FOLIC ACID 1 MG TAB PO SCH (09:00)
[2021-03-29] MEDS ORDERED: MULTIVITAMINS/MINERALS THERAP 1 TAB PO SCH (09:00)
[2021-03-29] MEDS: THIAMINE 100 MG TAB PO SCH (09:00)
[2021-03-29] MEDS ORDERED: FOLI1TAB11 PO (11:53)
[2021-03-29] MEDS ORDERED: OXAZ10CA3 PO ×2 (11:53→11:56)
[2021-03-29] MEDS ORDERED: THIA100T7 PO (11:53)
[2021-03-29] MEDS ORDERED: VITMTA PO (11:53)
[2021-03-29] MEDS ORDERED: OXAZEPAM 15 MG CAP PO SCH (12:00)
[2021-03-29] MEDS ORDERED: OXAZ15CA4 PO (12:43)
== END 2021-03-29 12:08 | DRG 812 ==
LOC: M ED 14:10 → M ED INP 18:38 → M PCU 20:49 → OBSVTOIN 03-26 10:06 → M PCU 03-27 00:50
PROVIDERS: ADMIT Family Medicine; ATTEND Internal Medicine
DX: T43.621A Poisoning by amphetamines, accidental (unintentional), initial encounter (principal); G92.9 Unspecified toxic encephalopathy; E87.2 Acidosis; M62.82 Rhabdomyolysis; E87.5 Hyperkalemia; F32.9 Major depressive disorder, single episode, unspecified; F41.9 Anxiety disorder, unspecified; B15.9 Hepatitis A without hepatic coma; G25.81 Restless legs syndrome; F10.239 Alcohol dependence with withdrawal, unspecified

== ENCOUNTER → 2024-06-16 | Outpatient (REF) | payer BC, OTHER ==
[~2024-06-16] MED LIST changes: +BUPR-597; -BUPR300T92; +FOLI1TAB11 PO; +OXAZ10CA3 PO; +OXAZ15CA4 PO; +THIA100T7 PO; +VITMTA PO
[2024-06-16 19:30] LABS: ALKALINE PHOSPHATASE 58 U/L (40-129); ALT/SGPT 98 U/L (7.0-40); AST/SGOT 101 U/L (<34); BILIRUBIN,TOTAL 0.4 MG/DL (0.3-1.2); BLOOD UREA NITROGEN 27 MG/DL (9-23); CALCIUM LEVEL 9.1 MG/DL (8.5-10.1); CARBON DIOXIDE LEVEL 28 MMOL/L (20-31); CHLORIDE LEVEL 103 MMOL/L (98-107); CHOLESTEROL LEVEL 142 MG/DL (<200); CHOLESTEROL RISK RATIO 3.32 (<5); GLOMERULAR FILTRATION RATE > 60.0 (>60); GLUCOSE, FASTING 72 MG/DL (60-100); HDL CHOLESTEROL 42.7 MG/DL (>40); LDL CHOLESTEROL 86.9 MG/DL (<100); NON-HDL-C 99.3 MG/DL; POTASSIUM SERUM 4.7 MMOL/L (3.5-5.1); SODIUM LEVEL 138 MMOL/L (136-145); TOTAL PROTEIN 6.8 G/DL (5.7-8.2); TRIGLYCERIDES LEVEL 62 MG/DL (<150)
[2024-06-17 09:39] LABS: IRON (FE) 77 UG/DL (65-175)
[2024-06-17 09:40] LABS: PERCENT SATURATION 23.3 % (19.7-50.0); TOTAL IRON BINDING CAPACITY 330 UG/DL (250-425)
[2024-06-17 09:42] LABS: FERRITIN 36.6 NG/ML (10.5-307.3)
[2024-06-17 09:54] LABS: HEPATITIS B SURFACE ANTIGEN NEGATIVE (NEGATIVE)
[2024-06-17 10:15] LABS: HEPATITIS B CORE ANTIBODY IGM NEGATIVE (NEGATIVE); HEPATITIS C VIRUS ABY INDEX 0.04 INDEX (<0.8)
== END ==
LOC: M SFHCCLAY 11:40
PROVIDERS: ATTEND Physician Assistant
DX: Z00.00 Encounter for general adult medical examination without abnormal findings (principal); R74.8 Abnormal levels of other serum enzymes

== ENCOUNTER → 2024-06-23 | Outpatient (CLI) | payer BC, OTHER | LOC: M SOG 07:54 | PROVIDERS: ATTEND Orthopaedic Surgery | DX: M25.531 Pain in right wrist (principal); M25.532 Pain in left wrist ==

== ENCOUNTER → 2025-03-03 | Outpatient (REF) | payer BC, OTHER ==
[~2025-03-03] MED LIST changes: -BUPR-597; +BUPR-766
[2025-03-03 18:50] LABS: ALT/SGPT 65 U/L (7.0-40); AST/SGOT 74 U/L (<34); CALCIUM LEVEL 9.1 MG/DL (8.5-10.1); CARBON DIOXIDE LEVEL 28 MMOL/L (20-31); CHLORIDE LEVEL 104 MMOL/L (98-107); CREATININE FOR GFR 0.99 MG/DL (0.70-1.30); GLOMERULAR FILTRATION RATE > 90.0 (>60); POTASSIUM SERUM 4.8 MMOL/L (3.5-5.1); SODIUM LEVEL 139 MMOL/L (136-145)
[2025-03-03 18:59] LABS: ESTIMATED AVERAGE GLUCOSE 100.0 MG/DL (60-110)
== END ==
LOC: M SFHCCLAY 11:24
PROVIDERS: ATTEND Physician Assistant
DX: R74.8 Abnormal levels of other serum enzymes (principal); K21.9 Gastro-esophageal reflux disease without esophagitis; F32.A Depression, unspecified; G56.03 Carpal tunnel syndrome, bilateral upper limbs